=== PATIENT | male | born 1960 | race Caucasian/White ===

== ENCOUNTER 2019-06-26 08:13 | Day surgery (SDC) | payer MEDICARE, BC, OTHER ==
[~2019-06-26] VITALS: Ht 190.5 cm; Wt 127.5 kg
[~2019-06-26 08:13] MED LIST: AMIT75TA PO; BACL10TA2 PO; CARV25TA PO; CIAL5TAB PO; LOSA100T50 PO; RANI300C PO; SPIR-10 PO; TRAZ-252 PO; propofoL 200 MG/20 ML VIAL As Ordered ONE
--- NOTE | 2019-06-26 09:17 | ROOR ---
Patient Name: Mta Liu Procedure Date: 06/26/2019 8:56 AM Date of : 1960 Age: 58 Room: OP02 Gender: Male Note Status: Finalized Procedure: Colonoscopy Indications: High risk colon cancer surveillance: Personal history of colonic polyps, Family history of colon cancer in a first-degree relative Providers: Ryan RAY MD Referring MD: DANILO Brower Requesting Provider: Medicines: Monitored Anesthesia Care Complications: No immediate complications. Procedure: Pre-Anesthesia Assessment: - The heart rate, respiratory rate, oxygen saturations, blood pressure, adequacy of pulmonary ventilation, and response to care were monitored throughout the procedure. The Colonoscope was introduced through the anus and advanced to the terminal ileum, with identification of the appendiceal orifice and IC valve. The colonoscopy was performed without difficulty. The patient tolerated the procedure well. The quality of the bowel preparation was good. Findings: The perianal and digital rectal examinations were normal. There was a medium-sized lipoma, 15 mm in diameter, at the ileocecal valve. This was biopsied with a cold forceps for histology. Mild sigmoid diverticulosis and small internal hemorrhoids. The exam was otherwise without abnormality on direct and retroflexion views. Impression: - Medium-sized lipoma at the ileocecal valve. Biopsied. - Mild sigmoid diverticulosis and small internal hemorrhoids. - The examination was otherwise normal on direct and retroflexion views. Recommendation: - Repeat colonoscopy in 5 years for screening purposes. Ryan Ray MD Ryan RAY MD 06/26/2019 9:17:14 AM Electronically signed by Ryan RAY MD Number of Addenda: 0 Note Initiated On: 06/26/2019 8:56 AM Estimated Blood Loss: Estimated blood loss: none.
[2019-06-26] MEDS ORDERED: NS 1,000 ML IV ONE (09:30)
[2019-06-26 09:42] VITALS: BP 134/63
== END 2019-06-26 09:44 | disposition home or self-care (01) ==
LOC: M OPP 08:13
PROVIDERS: ATTEND Internal Medicine Gastroenterology
DX: Z12.11 Encounter for screening for malignant neoplasm of colon (principal); Z86.010 Personal history of colon polyps; Z80.0 Family history of malignant neoplasm of digestive organs; D17.5 Benign lipomatous neoplasm of intra-abdominal organs; K64.8 Other hemorrhoids; K57.30 Diverticulosis of large intestine without perforation or abscess without bleeding; Z79.899 Other long term (current) drug therapy

== ENCOUNTER 2024-09-22 12:53 | Day surgery (SDC) | payer MEDICARE, BC ==
[~2024-09-22] VITALS: Ht 193 cm; Wt 128.5 kg
[~2024-09-22 12:53] MED LIST changes: +AMIT100TA PO; +EPLE25TA15 PO; +FAMO40TA3 PO; +FURO20TA2 PO; +LOSA100T46 PO; -LOSA100T50 PO; +SEMA0.257; -propofoL 200 MG/20 ML VIAL As Ordered ONE
[2024-09-22 15:50] VITALS: TEMP 97.9
[2024-09-22 16:09] VITALS: BP 118/58; O2SAT 97
== END 2024-09-22 16:12 | disposition home or self-care (01) ==
LOC: M OPP 12:53
PROVIDERS: ATTEND Internal Medicine Gastroenterology
DX: K62.1 Rectal polyp (principal); K63.89 Other specified diseases of intestine; K57.30 Diverticulosis of large intestine without perforation or abscess without bleeding; K64.8 Other hemorrhoids; Z86.0100 Personal history of colon polyps, unspecified; Z80.0 Family history of malignant neoplasm of digestive organs; K29.70 Gastritis, unspecified, without bleeding; K26.9 Duodenal ulcer, unspecified as acute or chronic, without hemorrhage or perforation; R12 Heartburn; K29.80 Duodenitis without bleeding; Z79.85 Long-term (current) use of injectable non-insulin antidiabetic drugs; Z79.899 Other long term (current) drug therapy; Z86.718 Personal history of other venous thrombosis and embolism